=== PATIENT | female | born 1990 | race Hispanic/Latino ===

== ENCOUNTER 2018-06-15 15:13 | Emergency (ER) | payer OTHER ==
[2018-06-15 15:21] VITALS: RESP 18; O2SAT 100
[2018-06-15] MEDS ORDERED: Sodium Chloride 0.9% 1,000 ML IV STA (15:36)
--- NOTE | 2018-06-15 15:38 | ED PDOC ---
HPI: Back Time Seen by Provider: 06/15/18 15:28 Chief Complaint (Nursing): Back Pain Chief Complaint (Provider): Severe flank pain History Per: Patient Additional Complaint(s): C/O sudden severe right sided back pain - radiating to abdomen with vomiting x 1. Patient took advil and motrin [employer] without any relief. Patient went to urgent care today and was referred to have U/S done but patient was unable to do the ultrasound due to the pain. Past Medical History Reviewed: Nursing Documentation, Vital Signs Vital Signs: Last Vital Signs Temp 98.6 F 06/15/18 15:18 Pulse 84 06/15/18 15:18 Resp 18 06/15/18 15:18 BP 128/79 06/15/18 15:18 Pulse Ox 100 06/15/18 15:18 - Medical History PMH: No Chronic Diseases - Surgical History Surgical History: No Surg Hx - Family History Family History: States: Unknown Family Hx - Living Arrangements Living Arrangements: With Family - Social History Current smoker - smoking cessation education provided: No Alcohol: Social Drugs: Denies - Home Medications Home Medications: Ambulatory Orders Medication Instructions Recorded Ciprofloxacin [Cipro] 500 mg PO BID #6 tab 06/15/18 Ibuprofen [Motrin] 600 mg PO Q6 #20 tab 06/15/18 Ondansetron ODT [Zofran ODT] 4 mg PO Q6 PRN #10 odt 06/15/18 oxyCODONE/Acetaminophen [Percocet 1 ea PO Q6 PRN #5 tab 06/15/18 5/325 mg Tab] - Allergies Allergies/Adverse Reactions: Allergies Allergy/AdvReac Type Severity Reaction Status Date / Time amoxicillin Allergy RASH Verified 06/15/18 15:18 Review of Systems ROS Statement: Except As Marked, All Systems Reviewed And Found Negative Gastrointestinal: Positive for: Nausea, Abdominal Pain Physical Exam - Reviewed Nursing Documentation Reviewed: Yes Vital Signs Reviewed: Yes - Physical Exam Appears: Positive for: Non-toxic, No Acute Distress, Uncomfortable Head Exam: Positive for: ATRAUMATIC, NORMAL INSPECTION, NORMOCEPHALIC Skin: Positive for: Normal Color, Warm, DRY Eye Exam: Positive for: EOMI, Normal appearance, PERRL ENT: Positive for: Normal ENT Inspection Neck: Positive for: Normal, Painless ROM Cardiovascular/Chest: Positive for: Regular Rate, Rhythm Respiratory: Positive for: CNT, Normal Breath Sounds Gastrointestinal/Abdominal: Positive for: Soft, Tenderness (R flank tenderness) . Negative for: Distended, Guarding Back: Positive for: Normal Inspection, R CVA Tenderness Extremity: Positive for: Normal ROM Neurologic/Psych: Positive for: Alert, Oriented - Laboratory Results Result Diagrams: 06/15/18 16:00 06/15/18 16:00 - ECG O2 Sat by Pulse Oximetry: 100 Medical Decision Making Medical Decision Making: Preg (-) U.Dip (+) blood and ketones. IV access established and treatment initiated with IVF, Toradol, Morphine Pt doing well on re-eval Labs resulted and reviewed with Pt who demonstrated full understanding. IMPRESSION: Obstructing 4 mm distal right ureteral calculus with mild right hydroureteronephrosis. Pt calm and comfortable on re-eval. Given urology referral and RX for pain medications to take as needed. Cipro RX given as well for hydronephrosis Disposition - Clinical Impression Clinical Impression: Kidney stone on right side, Hydronephrosis - Patient ED Disposition Is Patient to be Admitted: No - Disposition Referrals: Victorino Ramey MD [Staff Provider] - Disposition: Routine/Home Disposition Time: 18:19 Condition: STABLE Prescriptions: Ciprofloxacin [Cipro] 500 mg PO BID #6 tab Ibuprofen [Motrin] 600 mg PO Q6 #20 tab Ondansetron ODT [Zofran ODT] 4 mg PO Q6 PRN #10 odt PRN Reason: Nausea/Vomiting oxyCODONE/Acetaminophen [Percocet 5/325 mg Tab] 1 ea PO Q6 PRN #5 tab PRN Reason: Pain, Severe (8-10) Instructions: Kidney Stones in Adults, Hydronephrosis in Adults Forms: [employer]? [employer] (Setswana)
[2018-06-15 16:05] LABS: SQUAMOUS EPITHIAL < 1 /hpf (0-5); URINE BILIRUBIN NEGATIVE (NEGATIVE); URINE BLOOD SMALL (NEGATIVE); URINE CLARITY SLIGHTY-CLOUDY (Clear); URINE COLOR YELLOW (YELLOW); URINE GLUCOSE (UA) NEG (Normal); URINE LEUKOCYTE ESTERASE NEG Leu/uL (Negative); URINE PROTEIN 30 mg/dL (NEGATIVE); URINE UROBILINOGEN 0.2-1.0 mg/dL (0.2-1.0)
[2018-06-15 16:10] LABS: BASO % 0.2 % (0.0-2.0); HEMOGLOBIN 13.1 g/dL (12.0-16.0); LYMPH # 0.9 K/uL (1.0-4.3); LYMPH % 8.7 % (20.0-40.0); MEAN CELL VOLUME 97.4 fl (81.0-99.0); MEAN CORPUSCULAR HEMOGLOBIN 32.5 pg (27.0-31.0); MEAN CORPUSCULAR HGB CONC 33.3 g/dL (33.0-37.0); MEAN PLATELET VOLUME 8.1 fl (7.2-11.7); MONO # 0.4 K/uL (0.0-0.8); MONO % 4.4 % (0.0-10.0); NEUT # 8.8 K/uL (1.8-7.0); NEUT % 86.7 % (50.0-75.0); PLATELET COUNT 256 K/uL (130-400); RBC 4.03 Mil/uL (3.80-5.20); RED CELL DISTRIBUTION WIDTH 13.2 % (11.5-14.5); WHITE BLOOD COUNT 10.1 K/uL (4.8-10.8)
[2018-06-15 16:22] LABS: ALB/GLOB RATIO 1.5 (1.0-2.1); ALBUMIN 4.6 g/dL (3.5-5.0); ALT/SGPT 25 U/L (9-52); AST/SGOT 28 U/L (14-36); BLOOD UREA NITROGEN 10 mg/dl (7-17); CALCIUM 9.4 mg/dL (8.4-10.2); GFR AFRICAN-AMERICAN > 60; GFR NON-AFRICAN AMERICAN > 60
[2018-06-15 16:53] LABS: ANISOCYTOSIS SLIGHT; BANDS 4 % (0-2); LYMPHOCYTE 5 % (20-50); METAMYELOCYTE 1 % (0-0); MONOCYTE 3 % (0-10); MYELOCYTE 1 % (0-0); NEUTROPHIL 86 % (42-75); PLATELET ESTIMATE NORMAL (NORMAL); TOTAL CELLS COUNTED 100
[2018-06-15 16:55] LABS: LARGE PLATELETS PRESENT; OVALOCYTES SLIGHT; POIKILOCYTOSIS SLIGHT
--- NOTE | 2018-06-15 17:20 | CT ---
Date of service: 06/15/2018 PROCEDURE: CT Abdomen and Pelvis without intravenous contrast HISTORY: renal colic on R COMPARISON: None. TECHNIQUE: Without contrast.. Contrast dose: 0 Radiation dose: Total exam DLP = 368.27 mGy-cm. This CT exam was performed using one or more of the following dose reduction techniques: Automated exposure control, adjustment of the mA and/or kV according to patient size, and/or use of iterative reconstruction technique. FINDINGS: LOWER THORAX: Unremarkable. LIVER: Unremarkable. No gross lesion or ductal dilatation. GALLBLADDER AND BILE DUCTS: Unremarkable. PANCREAS: Unremarkable. No gross lesion or ductal dilatation. SPLEEN: Unremarkable. ADRENALS: Unremarkable. No mass. KIDNEYS AND URETERS: Mild right hydronephrosis and hydroureter. Obstructing distal 4 mm right ureteral calculus. No left hydronephrosis. No renal calculus. No renal mass. VASCULATURE: Unremarkable. No aortic aneurysm. BOWEL: Unremarkable. No obstruction. No gross mural thickening. APPENDIX: Unremarkable. Normal appendix. PERITONEUM: Unremarkable. No free fluid. No free air. LYMPH NODES: Unremarkable. No enlarged lymph nodes. BLADDER: Nondistended REPRODUCTIVE: Normal uterus BONES: Thoracolumbar levoscoliosis. OTHER FINDINGS: None. IMPRESSION: Obstructing 4 mm distal right ureteral calculus with mild right hydroureteronephrosis.
[2018-06-15] MEDS ORDERED: DiphenhydrAMINE 50 mg/ml Inj IVP STA (17:48)
[2018-06-15 19:05] VITALS: BP 106/71; PULSE 91; TEMP 98.7
== END 2018-06-15 19:12 | disposition home or self-care (01) ==
LOC: H.ER 15:13
DX: N13.2 Hydronephrosis with renal and ureteral calculous obstruction (principal); N20.0 Calculus of kidney
CPT/HCPCS: 74176; 80053; 81003; 81025; 85025; 87086; 96374; 96375; 96376; 99284; J1200; J1885; J2270; J2405; J7030